=== PATIENT | male | born 1955 | race Caucasian/White ===

== ENCOUNTER 2017-12-21 07:29 | Day surgery (SDC) | payer BC ==
[2017-12-18 09:29] VITALS: BMI 25.1
[2017-12-21] MEDS ORDERED: CEFAZOLIN/Water 2 GM/20 ML SYRINGE ONE (07:41)
[2017-12-21] MEDS ORDERED: Midazolam HCl 2 mg/2 ml Vial ONE (08:32)
[2017-12-21] MEDS ORDERED: Fentanyl 100 MCG/2 ML VIAL ONE (08:32)
[2017-12-21] MEDS ORDERED: Scopolamine 1.5 mg/72 hour Patch ONE (08:49)
[2017-12-21] MEDS ORDERED: traMADol HCl 50 MG TAB PO PRN ×2 (09:10)
[2017-12-21] MEDS ORDERED: Zolpidem Tartrate 5 MG TAB PO PRN (09:10)
[2017-12-21] MEDS ORDERED: Ketorolac Tromethamine 30 MG/ML VIAL IVP PRN (09:10)
[2017-12-21] MEDS ORDERED: Promethazine HCl 25 MG/ML VIAL IM PRN (09:10)
[2017-12-21] MEDS ORDERED: Ropivacaine HCl/PF 1,100 MG in Sodium Chloride 0.9% 440 ML NERVE BLCK SCH (09:10)
[2017-12-21] MEDS ORDERED: HYDROcodone/Acetaminophen 10/325 mg Tablet PO PRN ×2 (09:10)
[2017-12-21] MEDS ORDERED: Ondansetron HCl/PF 4 MG/2 ML Vial IVP PRN (09:10)
[2017-12-21] MEDS ORDERED: Fentanyl 100 MCG/2 ML VIAL IV PRN (09:11)
[2017-12-21] MEDS ORDERED: Bupivacaine/Epinephrine 0.25% 30 ML VIAL ONE (09:35)
[2017-12-21] MEDS ORDERED: Ropivacaine 0.5% HCl/PF (150 MG/30 ML VIAL) ONE (10:47)
[2017-12-21] MEDS ORDERED: Ropivacaine 0.2% HCl/PF (40 MG/20 ML VIAL) ONE (10:47)
[2017-12-21] MEDS ORDERED: Dexamethasone 20 MG/5 ML VIAL ONE (11:16)
[2017-12-21] MEDS ORDERED: Glycopyrrolate 0.2 MG/ML 5 ML SYRINGE ONE (11:16)
[2017-12-21] MEDS ORDERED: Ketorolac Tromethamine 30 MG/ML VIAL ONE (11:16)
[2017-12-21] MEDS ORDERED: ePHEDrine/0.9% NaCl/PF SYRINGE 50 mg/10 ml ONE (11:16)
[2017-12-21] MEDS ORDERED: PROPOFOL 200 MG/20 ML VIAL ONE (11:16)
[2017-12-21] MEDS ORDERED: Ondansetron HCl/PF 4 MG/2 ML Vial ONE (11:16)
--- NOTE | 2017-12-21 12:29 | OP ---
DATE OF PROCEDURE: 12/21/2017 PREOPERATIVE DIAGNOSES: Right 75% supraspinatus leading edge tear bursal-sided degenerative labral changes and signs of impingement. POSTOPERATIVE DIAGNOSES: 1. Partial thickness rotator cuff tear anteriorly degenerative left shoulder. 2. Left degenerative labral changes. PROCEDURE PERFORMED: Extensive debridement. STAFF: Kali Morris M.D. ANESTHESIA: Tubbs. The patient received general interscalene block. ESTIMATED BLOOD LOSS: 30 mL. TOURNIQUET TIME: None. IMPLANTS: None. ANTIBIOTICS: Ancef. COMPLICATIONS: None. HISTORY OF PRESENT ILLNESS: Mr. Barclay is a 62-year-old male who presented to me with left shoulder pain. The patient had several injections in his left shoulder. He has continued to have pain in bilateral shoulders. The patient's left shoulder continue get good relief. He had a MRI which showed a high grade near full thickness supraspinatus tear on report evaluation. I discussed with patient the risks, benefits of arthroscopic rotator cuff evaluation for repair versus debridement, biceps tenotomy, tenodesis, possible decompression. I discussed these risks and benefits and he elected to proceed. PROCEDURE IN DETAIL: Timeout was performed designating the patient's left upper extremity as the operative site based on site, consents, and markings. After completion of timeout, the patient's left upper extremity was prepped and draped in sterile fashion. Posterior working portal and anterior portal were placed. I looked within the joint. Biceps looked normal. There was not any full thickness fraying or damage. There was a little bit of capsular fraying at the insertion of the cuff, but no large tearing noted. There was fraying of the labrum. There was no peel back, I just debrided some of the degenerative portion of the labrum anteriorly. I took pictures of the shoulder, moved subacromially and then took off all the bursa of the shoulder to expose the shoulder. I then probed the entire length of the cuff looking for the soft spot. I could not find a soft spot that represented a to 75% defect and given the fact that I had no correlation inside and out and I could not find a tear, I did not desire to make one, therefore I elected just to do my extensive debridement. I then washed, closed with nylon. The patient will be range of motion as tolerated. I will see him back in about 3-4 weeks because of a trip. He is going to take aspirin while he is gone. He will begin range of motion as tolerated, working with therapy. If he continues to have pain given history of bilateral shoulder pain I would further evaluate his neck. MTDD
== END 2017-12-21 14:00 | disposition home or self-care (01) ==
LOC: SDC 07:29
PROVIDERS: ATTEND Orthopaedic Surgery
PROC: 0RBK4ZZ Excision of Left Shoulder Joint, Percutaneous Endoscopic Approach (ICD-10-PCS; principal; 2017-12-21)
DX: M75.112 Incomplete rotator cuff tear or rupture of left shoulder, not specified as traumatic (principal); G43.909 Migraine, unspecified, not intractable, without status migrainosus; I10 Essential (primary) hypertension; E78.5 Hyperlipidemia, unspecified; M06.9 Rheumatoid arthritis, unspecified; I25.10 Atherosclerotic heart disease of native coronary artery without angina pectoris; M75.42 Impingement syndrome of left shoulder; Z79.899 Other long term (current) drug therapy
CPT/HCPCS: G8984-GP-CK; G8985-GP-CK; G8986-GP-CK; J1100; J1885; J2250; J2405; J2704; J2795; J3010; J7050